=== PATIENT | male | born 1940 | race Caucasian/White ===

== ENCOUNTER 2018-08-31 08:52 | Inpatient (IN) | payer MEDICARE ==
[~2018-08-31] VITALS: Ht 182.9 cm; Wt 105.2 kg
[~2018-08-31 08:52] MED LIST: ALEVE220 M1 PO; ASPIRIN81 M2 PO; CLOPIDOGREL BIS75 MG PO; CRESTOR10 MG PO; FLOMAX0.4 MG PO; GABAPENTIN300 MG PO; HYDROCODONE-AP1 EAC1 PO; NAPROXEN250 MG PO; Z.0.LIPITOR20 MG PO; Z.0.TRICOR145 MG PO; Z.0.ZOLPIDEM TARTRA1 PO; Z.5.AMLODIPINE-BEN1 PO
[2018-08-31] MEDS ORDERED: ASPIRIN 81 MG CHEW TAB PO ONE (09:15)
[2018-08-31 09:33] LABS: BASOPHILS # (AUTO) 0.1 (0.0-0.1); EOSINOPHILS # (AUTO) 0.2 (0.0-0.4); EOSINOPHILS % 3.1 % (0.0-6.0); HEMATOCRIT 45.2 % (38.2-49.6); HEMOGLOBIN 15.2 g/dL (14.0-18.0); INR 0.86; LYMPHOCYTES # (AUTO) 1.2 (1.0-3.2); LYMPHOCYTES % 19.8 % (18.0-39.1); MEAN CORPUSCULAR HGB CONC 33.6 g/dL (31-35); MEAN CORPUSCULAR VOLUME 86.3 fL (81-99); MONOCYTES # (AUTO) 0.5 (0.2-0.8); MONOCYTES % 7.8 % (4.4-11.3); NEUTROPHILS % 67.6 % (38.7-80.0); PARTIAL THROMBOPLASTIN TIME 32.4 seconds (23.8-35.5); PLATELET COUNT 161 x10e3/uL (140-360); PROTHROMBIN TIME 12.2 seconds (11.9-14.5); RED BLOOD COUNT 5.24 x10e6/uL (4.3-5.7); RED CELL DISTRIBUTION WIDTH 13.3 % (11.7-14.4)
[2018-08-31 09:42] LABS: ALBUMIN 3.8 g/dL (3.5-5.0); ALBUMIN/GLOBULIN RATIO 1.4 (0.8-2.0); ANION GAP 11.9 mmol/L (8-16); CREATININE, SERUM 1.45 mg/dL (0.72-1.25); POTASSIUM 3.9 mmol/L (3.5-5.1)
[2018-08-31 09:44] LABS: CREATINE KINASE MB 1.4 ng/mL (0-5.0)
[2018-08-31] MEDS ORDERED: ONDANSETRON HCL INJ 2MG/ML 2ML 2 MG/ML VIAL IV STA (10:03)
[2018-08-31] MEDS ORDERED: SODIUM CHLORIDE 0.9% 500ML 500 ML IV ONE (10:15)
[2018-08-31] MEDS ORDERED: MORPHINE SULFATE INJ 4 MG/ML INJ 1ML IV ONE (10:15)
--- NOTE | 2018-08-31 10:37 | Diagnostic Imaging Report ---
EXAMINATION: CHEST SINGLE (PORTABLE) INDICATION: Chest pain. COMPARISON: None FINDINGS: TUBES and LINES: None. LUNGS: Lungs are not well inflated. Patchy left basilar opacity, likely atelectasis. There is no evidence of lobar pneumonia or pulmonary edema. PLEURA: No pleural effusion or pneumothorax. HEART AND MEDIASTINUM: The cardiomediastinal silhouette is unremarkable. BONES AND SOFT TISSUES: No acute osseous lesion. Status post median sternotomy. Degenerative changes of the right shoulder. UPPER ABDOMEN: No free air under the diaphragm. IMPRESSION: No acute radiographic abnormality. Signed by: Dr. Claude Salazar MD on 08/31/2018 10:34 AM
[2018-08-31] MEDS ORDERED: ONDANSETRON HCL INJ 2MG/ML 2ML 2 MG/ML VIAL IV PRN (10:45)
[2018-08-31] MEDS ORDERED: MORPHINE SULFATE 2 MG/ML SYR 1ML IV PRN (10:45)
[2018-08-31] MEDS ORDERED: MORPHINE SULFATE INJ 4 MG/ML INJ 1ML IV PRN (11:00)
--- NOTE | 2018-08-31 11:15 | Diagnostic Imaging Report ---
EXAM: CT Chest WITH contrast- Pulmonary Embolism Protocol INDICATION: Shortness of breath. COMPARISON: None TECHNIQUE: Chest was scanned utilizing a multidetector helical scanner from the lung apex through the level of the diaphragm after administration of IV contrast. Thin section reconstructions were obtained with special concentration on the pulmonary arteries. Coronal and sagittal reformations were obtained. Pulmonary embolism protocol was performed. IV CONTRAST: 100 cc of Isovue 370 RADIATION DOSE: Total DLP: 536.2 mGy*cm Dose modulation, iterative reconstruction, and/or weight based adjustment of the mA/kV was utilized to reduce the radiation dose to as low as reasonably achievable. COMPLICATIONS: None FINDINGS: LINES/ TUBES: None. PULMONARY ARTERIES: Somewhat limited secondary to motion and contrast opacification. No filling defect is identified within the pulmonary arteries to the segmental level. The subsegmental pulmonary arteries are not well opacified. Main pulmonary artery measures 3.2 cm in diameter. LUNGS AND AIRWAYS: The central airways are patent. Motion artifact limits evaluation for lung nodule. PLEURA: The pleural spaces are clear. HEART AND MEDIASTINUM: The thyroid gland is normal. No mediastinal, hilar or axillary lymphadenopathy. Moderate cardiomegaly. No evidence of pericardial effusion. Extensive coronary atherosclerosis. Scattered atherosclerotic calcifications of the thoracic aorta and branch vessels. Status post aortic valve replacement. UPPER ABDOMEN: Limited contrast enhanced views of the upper abdomen. There is reflux of contrast into the IVC, suggestive of right heart dysfunction. BONES/SOFT TISSUES: No acute osseous abnormality. No suspicious lytic or blastic lesions. IMPRESSION: Somewhat limited examination secondary to motion contrast opacification. No evidence of pulmonary embolism to the level of the segmental pulmonary arteries. Moderate cardiomegaly with extensive coronary atherosclerosis. Enlarged main pulmonary artery, measuring up to 3.2 cm, suggestive of pulmonary arterial hypertension. Signed by: Dr. Claude Salazar MD on 08/31/2018 11:12 AM
[2018-08-31] MEDS: FAMOTIDINE 20 MG/2 ML VIAL IV SCH ×2 (11:17→22:45)
[2018-08-31 11:57] LABS: CLARITY,URINE CLEAR (CLEAR); COLOR,URINE YELLOW (YELLOW); KETONES,URINE NEGATIVE (NEGATIVE); LEUKOCYTE ESTERASE ,URINE NEGATIVE (NEGATIVE); NITRITE,URINE NEGATIVE (NEGATIVE); PROTEIN,URINE DIPSTICK NEGATIVE (NEGATIVE)
[2018-08-31 11:58] LABS: BILIRUBIN,URINE NEGATIVE (NEGATIVE); URINE UROBILINOGEN 0.2 mg/dL (0.2 - 1)
[2018-08-31 12:01] LABS: EPITHELIAL CELLS,URINE RARE /LPF
--- NOTE | 2018-08-31 12:20 | NUR ---
received to rm 209 aaox3 no distress noted, denies chest pain r ac 20g no ss of infiltration noted, oriented to rm, updated on poc voiced understanding, respirations even/unlabored, no other co voiced call light in reach will continue to monitor
[2018-08-31] MEDS ORDERED: PANTOPRAZOLE SO40 MG PO (12:57)
[2018-08-31] MEDS ORDERED: ALEVE220 MG PO (12:57)
[2018-08-31 12:58] VITALS: BP 132/62
[2018-08-31] MEDS ORDERED: ZOLPIDEM TARTRATE 10 MG TAB PO PRN (14:30)
[2018-08-31] MEDS: GABAPENTIN 300 MG CAP PO SCH ×2 (15:31→21:07)
[2018-08-31] MEDS ORDERED: SODIUM CHLORIDE 0.9% 50ML 50 ML ONE (15:50)
[2018-08-31] MEDS ORDERED: IOPAMIDOL 370 MG/ML 200 ML INFUS..BTL INJ ONE (15:50)
[2018-08-31 16:23] VITALS: BP 142/78
[2018-08-31] MEDS ORDERED: ONDANSETRON HCL 4 MG ORAL DISINTEGRATING TAB PO PRN (16:30)
--- NOTE | 2018-08-31 19:25 | NUR ---
Patient received sitting up in bed. AAO x 4 . Patient had no complaints of pain. Respirations even and non-labored. Fall precautions implemented. Patient instructed to call for assistance when needed. Call light within reach.
[2018-08-31 20:00] VITALS: BP 132/68
[2018-08-31 20:16] LABS: CREATINE KINASE MB 1.8 ng/mL (0-5.0)
[2018-08-31] MEDS ORDERED: NON-FORMULARY MEDICATION (Zolpidem Tartrate 10 MG) PO SCH (21:00)
[2018-08-31] MEDS ORDERED: NAPROXEN SODIUM PO SCH (21:00)
[2018-08-31] MEDS: SIMVASTATIN 20 MG TAB PO SCH (21:07)
[2018-08-31] MEDS: NAPROXEN 250 MG TAB PO SCH (21:07)
[2018-08-31 21:35] VITALS: BP 132/68
--- NOTE | 2018-08-31 23:42 | Consultation ---
DATE OF CONSULTATION: Cardiology Consultation HISTORY OF PRESENT ILLNESS: This is a 77-year-old man with a history of hypertension, hyperlipidemia, history of coronary artery disease, status post percutaneous coronary intervention, and bioprosthetic aortic valve replacement, who presented to the emergency department with progressively worsening shortness of breath and chest pain. The patient states that over the past 4 to 5 months, he has had progressive worsening exertional angina and shortness of breath. He feels very fatigued and is occasionally short of breath with just minimal activities. He has no recent symptoms of near syncope or syncope. He also has no orthopnea, paroxysmal nocturnal dyspnea, or lower extremity swelling. The patient states that the pain is not severe, however, can be moderate in intensity, occasionally sharp and stabbing and also occasionally pressure. PAST MEDICAL HISTORY: As stated above. PAST SURGICAL HISTORY: As stated above. PAST FAMILY HISTORY: No premature coronary artery disease or sudden cardiac . SOCIAL HISTORY: No illicit drug, alcohol, or tobacco use. ALLERGIES: NO KNOWN DRUG ALLERGIES. MEDICATIONS: See medication reconciliation form. PHYSICAL EXAMINATION: VITAL SIGNS: Temperature is 96.7, heart rate 62, respirations are 20, blood pressure is 142/78, and oxygen saturation 96% on room air. GENERAL: Well appearing, well built, no apparent distress. Alert and oriented x3. HEAD: Normocephalic and atraumatic. Eyes, the extraocular muscles are intact. Conjunctivae clear. NECK: No JVD. No bruits. CARDIOVASCULAR: Regular rate and rhythm. Systolic murmur at the right sternal border. LUNGS: Clear to auscultation bilaterally. No wheezing or rales. ABDOMEN: Soft, nontender, and nondistended. Normoactive bowel sounds. EXTREMITIES: No clubbing, cyanosis, or edema. VASCULAR: 2+ pulses. SKIN: Warm, dry, and intact. NEUROLOGIC: No focal deficits noted. Cranial nerves grossly intact. PSYCHIATRIC: Normal mood and affect. LABORATORY DATA: Reviewed. Creatinine 1.45. Troponin 0.007. BNP is 21. CT of the chest showed no evidence of pulmonary embolism, moderate cardiomegaly. Chest x-ray shows no acute cardiopulmonary abnormality. A 12-lead electrocardiogram shows normal sinus rhythm with poor R-wave progression. IMPRESSION: 1. Precordial pain. 2. Dyspnea on exertion with shortness of breath. 3. Hypertension. 4. Hyperlipidemia. 5. Obesity. 6. History of coronary artery disease, status post percutaneous coronary intervention. 7. History of bioprosthetic aortic valve replacement. RECOMMENDATIONS: Continue to trend troponins to rule out for myocardial infarction. We will obtain a 2D echocardiogram to assess left ventricular systolic function and valvular function. Continue blood pressure management per primary team. Continue aspirin, Plavix, and statin. The patient likely will require stress testing, which can be performed tomorrow. Keep the patient n.p.o. after midnight for possible stress test. DO MARILU English/MODL /[id number]
[2018-09-01] VITALS (8 sets, daily range): BP systolic 111–138; BP diastolic 60–84
--- NOTE | 2018-09-01 01:08 | Consultation ---
DATE OF CONSULTATION: Pulmonary Consultation REASON FOR THE CONSULT: Shortness of breath. HISTORY OF PRESENT ILLNESS: Mr. Gilmore is a 77-year-old male, who was admitted by Dr. Payton's office with complaints of shortness of breath. The patient reports that the symptoms have been going on for few months, progressively getting worse. He has a history of valve replacement, which was done at [facility] around 6 years ago per the patient, but he is not sure, it could be more than that. After that, he felt better, but now recently he has noticed that he is having shortness of breath for the last few months, which is just progressively getting worse. He has a history of remote history of smoking, quit around 40 years ago, smoked for 30 years. The patient has noticed that he has abdominal bloating and also has pedal edema. REVIEW OF SYSTEMS: GENERAL: Denies any fevers or chills. HEAD: Denies any head trauma. ENT: Denies any earache. CVS: Denies any chest pain. RESPIRATORY: Shortness of breath. The rest of the review of systems are negative except as in HPI. PAST MEDICAL HISTORY: Hypertension, hyperlipidemia, coronary artery disease, history of valve replacement. FAMILY AND SOCIAL HISTORY: He does not smoke currently. He does not drink. Remote history of smoking for 30 years in his life. PHYSICAL EXAMINATION: VITAL SIGNS: Temperature 96.7, pulse is 62, blood pressure 132/68, respiratory rate of 18. HEENT: Head is atraumatic, normocephalic. NECK: Supple. CHEST: Clear to auscultation bilaterally. No wheezing. No crackles. CHEST: Reduced air entry bilaterally. No wheezing, but decreased breath sounds. HEART: S1, S2 audible. ABDOMEN: Soft, nontender, but distended. EXTREMITIES: Pedal edema. NEUROLOGIC: Awake and alert. LABORATORY DATA: White count of 5000, hemoglobin 15.2, platelets 161. Chemistry; sodium 139, potassium 3.9, BUN 29, and creatinine 1.45. CT chest, I have reviewed the images, it does not have pulmonary embolism, but it is showing some ground-glass areas in the lung, which is not reported and has cardiomegaly. BNP is normal at 21.1. ASSESSMENT AND PLAN: Mr. Gilmore is a 77-year-old male, who presented with shortness of breath. It seems like possibly the patient has diastolic heart failure versus valve related problem causing him to have fluid overload. Unlikely, that he has any underlying chronic obstructive pulmonary disease with remote history of smoking. Also, the CT of the chest showing areas of ground-glass, which is likely the fluid. The patient also has a large pulmonary artery fluid and congestion along with cardiomegaly and likely favors the heart failure. RECOMMENDATIONS: 1. I will start the patient on Lasix 40 mg IV daily starting in a.m. 2. Start the patient on nebulizer treatment. 3. Oxygen as needed to keep the O2 saturation more than or equal to 92%. 4. Follow the creatinine if the MARY worsen with diuresis. We will hold off on it, but I am hoping that it probably will be improving with diuresis. Thank you for this consult. MD YOVANY Alicea/RAGHAVENDRA /[id number]
--- NOTE | 2018-09-01 02:19 | NUR ---
Blood specimen sent to lab for analysis of cardiac enzymes.
[2018-09-01 02:48] LABS: CREATINE KINASE 221 IU/L (30-200)
[2018-09-01] MEDS: FUROSEMIDE INJ 10 MG/ML 4 ML VIAL IV SCH ×2 (06:32→09:28)
[2018-09-01] MEDS: ALBUTEROL/IPRATROPIUM 3 ML NEB NEB SCH ×4 (07:00→23:45)
--- NOTE | 2018-09-01 07:00 | NUR ---
BEDSIDE SHIFT REPORT RECEIVED FROM NIGHT RN. PT DENIES NEEDS AT THIS TIME.
--- NOTE | 2018-09-01 07:13 | NUR ---
Walking rounds done. Shift report given to oncoming nurse regarding patient's status.
[2018-09-01 07:40] LABS: BASOPHILS # (AUTO) 0.1 (0.0-0.1); BASOPHILS % 0.9 % (0.0-1.0); EOSINOPHILS # (AUTO) 0.3 (0.0-0.4); HEMATOCRIT 46.5 % (38.2-49.6); HEMOGLOBIN 15.3 g/dL (14.0-18.0); LYMPHOCYTES # (AUTO) 1.2 (1.0-3.2); LYMPHOCYTES % 18.5 % (18.0-39.1); MEAN CORPUSCULAR HEMOGLOBIN 28.7 pg (28-32); MEAN CORPUSCULAR HGB CONC 32.9 g/dL (31-35); MEAN CORPUSCULAR VOLUME 87.2 fL (81-99); MONOCYTES # (AUTO) 0.6 (0.2-0.8); NEUTROPHILS # (AUTO) 4.4 (2.1-6.9); NEUTROPHILS % 67.3 % (38.7-80.0); PLATELET COUNT 165 x10e3/uL (140-360); RED BLOOD COUNT 5.33 x10e6/uL (4.3-5.7); RED CELL DISTRIBUTION WIDTH 13.5 % (11.7-14.4)
[2018-09-01 08:29] LABS: ALBUMIN 3.9 g/dL (3.5-5.0); ALBUMIN/GLOBULIN RATIO 1.3 (0.8-2.0); CALCIUM 9.3 mg/dL (8.4-10.2); CHOL/HDL RATIO 4.9 (3.9-4.7); CREATININE, SERUM 1.18 mg/dL (0.72-1.25)
[2018-09-01] MEDS ORDERED: PANTOPRAZOLE SOD 40 MG TABEC PO SCH (09:00)
[2018-09-01] MEDS ORDERED: TAMSULOSIN HCL 0.4 MG CAP PO SCH (09:00)
[2018-09-01] MEDS ORDERED: ASPIRIN 81 MG ENTERIC COATED PO SCH (09:00)
[2018-09-01] MEDS ORDERED: CLOPIDOGREL BISULFATE 75 MG TAB PO SCH ×2 (09:00)
[2018-09-01] MEDS ORDERED: FUROSEMIDE INJ 10 MG/ML 4 ML VIAL IV SCH (09:00)
[2018-09-01] MEDS ORDERED: BENAZEPRIL HCL 10 MG TAB PO SCH (09:00)
[2018-09-01] MEDS ORDERED: NAPROXEN 250 MG TAB PO SCH (09:00)
[2018-09-01] MEDS ORDERED: AMLODIPINE BESYLATE 10 MG TAB PO SCH (09:00)
[2018-09-01] MEDS ORDERED: SIMVASTATIN 40 MG TAB PO SCH (09:00)
[2018-09-01] MEDS: GABAPENTIN 300 MG CAP PO SCH ×3 (09:19→22:33)
[2018-09-01 11:07] LABS: ANION GAP 14.9 mmol/L (8-16); CALCIUM 9.9 mg/dL (8.4-10.2); CREATININE, SERUM 1.51 mg/dL (0.72-1.25); POTASSIUM 3.9 mmol/L (3.5-5.1)
[2018-09-01] MEDS: FAMOTIDINE 20 MG/2 ML VIAL IV SCH ×2 (12:55→22:45)
--- NOTE | 2018-09-01 13:00 | NUR ---
PFT DONE AT BEDSIDE
--- NOTE | 2018-09-01 16:21 | NUR ---
CASE MANAGEMENT INITIAL ASSESSMENT Registered Pharmacist to bedside to discuss plan of care with patient/family. CM/SW role and care transitions discussed. Anticipated discharge plan discussed along with duration of care. CM/SW discussed patients right to make decisions in care. CM/SW work hours given. Patient lives: alone in [facility] and [address] [place] Admit/Transfer: ER Hospital/ER visits since last admit: NONE POA/Emergency contact: DAUGHTER: HARPER FELIZ [phone] Current/Previous Home Health: NONE PCP/Follow-up Care: DR. HANSON Current/Previous DME: [facility] Medications (referring to index hospitalization or the first time you were in the hospital) a. Were changes made in your medications when you were in the hospital on [date of index hospitalization]? Yes X No Not sure Explain: Note: If no or not sure, please skip to question d b. Did you understand the changes? Yes No Explain: c. Were you able to obtain your new medications right away? Yes No n/a SNF only Explain: d. Were you able to take your medications like the doctor wanted you to? X Yes No Explain: e. Did the hospital give you an accurate, easy to understand list of medications when you left? Yes No n/a SNF only Explain: Scale of 1-10 how comfortable does patient feel with disease management in outpatient setting: Other Services: N/A Employment Status: RETIRED Areas of Concerns: NONE Referral Needs: NONE Education Needs: NONE IMM/WHALEY given and signed (if applicable): GIVEN AT ADMIT Goal for discharge: TO RETURN HOME CM/SW left business card at the bedside with contact information. Name and number was also written on the patients whiteboard. Patient verbalized understanding of discussion. CM will follow-up with ongoing discharge and transition of care needs.
--- NOTE | 2018-09-01 19:00 | NUR ---
BEDSIDE SHIFT REPORT GIVEN TO FORESTRY CREW CHIEF RN. PT DENIES NEEDS AT THIS TIME.
--- NOTE | 2018-09-01 19:13 | Progress Note ---
DATE: Cardiology Progress Note SUBJECTIVE: The patient still with mild shortness of breath and fatigue with ambulation. No symptoms at rest. OBJECTIVE: VITAL SIGNS: Temperature is 96.5, heart rate 71, respirations are 20, blood pressure is 126/68, and oxygen saturation 96% on room air. GENERAL: Well appearing, well built, no apparent distress. CARDIOVASCULAR: Regular rate and rhythm. Mild systolic murmur at the right sternal border. LUNGS: Clear to auscultation. ABDOMEN: Soft, nontender, and nondistended. EXTREMITIES: No clubbing, cyanosis, or edema. VASCULAR: 2+ pulses. CARDIOVASCULAR MEDICATIONS: Reviewed. LABORATORY DATA: Reviewed. IMPRESSION: 1. Shortness of breath with dyspnea on exertion. 2. Atypical precordial pain. 3. Hypertension. 4. Hyperlipidemia. 5. Obesity. 6. History of coronary artery disease status post percutaneous coronary intervention. 7. History of bioprosthetic aortic valve replacement. RECOMMENDATIONS: The patient appears relatively asymptomatic at this point in time. Continue current cardiovascular medications. His echocardiogram showed normal valvular function with a normal ejection fraction. Recent stress test in December of last year showed no evidence of ischemia. No further cardiac testing is required at this point in time. The patient maybe discharged from a cardiovascular standpoint. DO MARILU English/RAGHAVENDRA /[id number]
--- NOTE | 2018-09-01 19:25 | NUR ---
Patient received sitting up in bed undergoing breathing treatment. AAO x 4. No acute distress noted. Fall precautions implemented. Patient instructed to call for assistance when needed. Call light within reach.
[2018-09-01] MEDS: NAPROXEN 250 MG TAB PO SCH (22:33)
[2018-09-01] MEDS: SIMVASTATIN 20 MG TAB PO SCH (22:33)
[2018-09-02] MEDS: ALBUTEROL/IPRATROPIUM 3 ML NEB NEB SCH ×2 (02:30→07:10)
[2018-09-02 03:56] VITALS: BP 112/61
[2018-09-02 05:59] VITALS: BP 121/74
[2018-09-02 06:16] LABS: BASOPHILS # (AUTO) 0.1 (0.0-0.1); BASOPHILS % 0.6 % (0.0-1.0); EOSINOPHILS # (AUTO) 0.1 (0.0-0.4); HEMATOCRIT 43.5 % (38.2-49.6); HEMOGLOBIN 14.4 g/dL (14.0-18.0); LYMPHOCYTES % 12.2 % (18.0-39.1); MEAN CORPUSCULAR HEMOGLOBIN 28.3 pg (28-32); MEAN CORPUSCULAR HGB CONC 33.1 g/dL (31-35); MEAN CORPUSCULAR VOLUME 85.5 fL (81-99); MONOCYTES # (AUTO) 0.9 (0.2-0.8); MONOCYTES % 10.2 % (4.4-11.3); NEUTROPHILS # (AUTO) 6.3 (2.1-6.9); NEUTROPHILS % 75.4 % (38.7-80.0); PLATELET COUNT 153 x10e3/uL (140-360); RED BLOOD COUNT 5.09 x10e6/uL (4.3-5.7); RED CELL DISTRIBUTION WIDTH 13.8 % (11.7-14.4)
[2018-09-02 06:34] LABS: CALCIUM 8.9 mg/dL (8.4-10.2)
[2018-09-02 06:36] LABS: CREATININE, SERUM 3.22 mg/dL (0.72-1.25)
[2018-09-02] MEDS ORDERED: FUROSEMIDE INJ 10 MG/ML 4 ML VIAL IV SCH (07:00)
--- NOTE | 2018-09-02 07:04 | NUR ---
RECEIVED PATIENT RESTING IN BED. NO ACUTE DISTRESS NOTED. DENIES PAIN OR DISCOMFORT. CALL LIGHT WITHIN REACH. BED IN THE LOWEST POSITION.
--- NOTE | 2018-09-02 07:08 | NUR ---
Walking rounds done. Shift report given to oncoming nurse regarding patient's status.
[2018-09-02 07:20] VITALS: BP 116/60
[2018-09-02 07:44] VITALS: BP 116/60
--- NOTE | 2018-09-02 07:51 | Discharge Summary ---
DISCHARGE DIAGNOSES: 1. Restrictive lung disease. 2. Dyspnea on exertion. 3. Hypertension. 4. Hyperlipidemia. 5. Benign prostatic hypertrophy. 6. History of coronary artery disease. HISTORY OF PRESENT ILLNESS AND HOSPITAL COURSE: See hospital chart for details. The patient had significant dyspnea on exertion and shortness of breath with mild chest pain EKG and Lexiscan stress test done that was negative and CT scan was done, negative for pulmonary embolus, and he then had PFTs done that showed significant restrictive lung disease. It is 60%. FEV1 and FVC and patient told to do pulmonary rehab and weight loss and will follow up with me in approximately 1 week and continue with his home medications. Please see hospital chart for full details. MD AUGIE Valladares/RAGHAVENDRA /[id number] MTDD
--- NOTE | 2018-09-02 08:23 | NUR ---
RECEIVED DC ORDER FROM MD, PATIENT IS IN STABLE CONDITION. IV LINE TO RIGHT AC DCD WITH TIP INTACT, PRESSURE APPLIED TO SITE, NO BLEEDING NOTED. DISCHARGE TEACHING PROVIDED, PATIENT VERBALIZED UNDERSTANDING. DISCHARGE FOLDER AND PERSONAL ITEMS ON HAND. PATIENT ACCOMPANIED TO PRIVATE AUTO VIA WHEELCHAIR BY STAFF.
== END 2018-09-02 08:23 | disposition home or self-care (01) | DRG 206 ==
LOC: ER 08:52 → ERHOLD 10:40 → MED/SURG2 12:02
PROVIDERS: ADMIT Internal Medicine; ATTEND Internal Medicine
DX: J98.4 Other disorders of lung (principal); R07.89 Other chest pain; I12.9 Hypertensive chronic kidney disease with stage 1 through stage 4 chronic kidney disease, or unspecified chronic kidney disease; N18.3 Chronic kidney disease, stage 3 (moderate); I25.10 Atherosclerotic heart disease of native coronary artery without angina pectoris; Z87.891 Personal history of nicotine dependence; Z82.49 Family history of ischemic heart disease and other diseases of the circulatory system; K21.9 Gastro-esophageal reflux disease without esophagitis; E78.5 Hyperlipidemia, unspecified; Z95.2 Presence of prosthetic heart valve; Z95.5 Presence of coronary angioplasty implant and graft; E66.9 Obesity, unspecified; N40.0 Benign prostatic hyperplasia without lower urinary tract symptoms; Z68.31 Body mass index [BMI] 31.0-31.9, adult
CPT/HCPCS: 36415; 71045; 71260; 80048; 80053; 80061; 81001; 82550; 82553; 83735; 83880; 84484; 85025; 85379; 85610; 85730; 87086; 93005; 93306; 94060; 94640; 99284; J1940; J2270; J2405; J7040; Q9967

== ENCOUNTER → 2021-05-29 | Outpatient (CLI) | payer OTHER ==
[~2021-05-29] MED LIST changes: +ALEVE220 MG PO; +PANTOPRAZOLE SO40 MG PO
== END ==
LOC: MRI 10:26
PROVIDERS: ATTEND Internal Medicine
DX: M54.2 Cervicalgia (principal)
CPT/HCPCS: 72141

== ENCOUNTER 2024-03-27 10:00 | Outpatient (RCR) | payer OTHER | END 2024-03-31 | LOC: PT 10:00 | PROVIDERS: ATTEND Internal Medicine | DX: M25.511 Pain in right shoulder (principal) ==

== ENCOUNTER 2024-04-06 07:48 | Outpatient (RCR) | payer OTHER | END 2024-05-01 | LOC: PT 07:48 | PROVIDERS: ATTEND Internal Medicine | DX: M25.511 Pain in right shoulder (principal) ==

== ENCOUNTER 2024-05-08 13:44 | Outpatient (RCR) | payer MEDICARE | END 2024-06-01 | LOC: PT 13:44 | PROVIDERS: ATTEND Internal Medicine | DX: M25.511 Pain in right shoulder (principal) ==